=== PATIENT | female | born 1985 | race Caucasian/White ===

== ENCOUNTER 2017-04-24 12:41 | Emergency (ER) | payer OTHER ==
[~2017-04-24] VITALS: Ht 157.5 cm; Wt 86.2 kg
[~2017-04-24 12:41] MED LIST: BECL0.089 INH
[2017-04-24 12:50] VITALS: BP 119/64
--- NOTE | 2017-04-24 12:53 | NUR ---
PATIENT AMBULATED TO BED 12 AT THIS TIME.
--- NOTE | 2017-04-24 12:55 | NUR ---
31/F BIB SELF C/O SOB SINCE WEDNESDAY; USING HER INHALER WITH NO IMPROVEMENT. HX OF ASTHMA. DENIES N/V/D; SKIN IS PINK/WARM/DRY; AAOX4 WITH EVEN AND STEADY GAIT; LUNGS WHEEZING BL; PATIENT STATES PAIN OF 5/10 AT THIS TIME; VSS; PATIENT POSITIONED FOR COMFORT; HOB ELEVATED; BEDRAILS UP X2; BED DOWN. ER MD MADE AWARE OF PT STATUS.
[2017-04-24] MEDS ORDERED: ALBUTEROL SULFATE/IPRATROPIU 3 ML SOL IH ONE (13:10)
[2017-04-24] MEDS ORDERED: predniSONE 20 MG TAB PO ONE (13:10)
--- NOTE | 2017-04-24 13:25 | NUR ---
PATIENT OUT OF ROOM IN RADIOLOGY [employer] INSTALLER TO ATTEMPT HHN THERAPY AT A LATER TIME
--- NOTE | 2017-04-24 13:35 | NUR ---
ADMITTING DX: ADULT-ASTHMA C/O SOB AWAKE AND ALERT RESPONSIVE SKIN TONE PINK SITTING IN CHAIR EDUCATION PROVIDED TO PATIENT WITH ACKNOWLEDGEMENT ON HHN THERAPY AND RESPIRATORY DRUG HHN THERAPY GIVEN ORDERED ENCOURAGED PATIENT FOR DEEP BREATHING DURING THERAPY TOLERATED WELL WITHOUT INCIDENT
[2017-04-24 14:10] VITALS: BP 117/71
--- NOTE | 2017-04-24 14:10 | NUR ---
Patient discharged with v/s stable. Written and verbal after care instructions given and explained. Patient alert, oriented and verbalized understanding of instructions. Ambulatory with steady gait. All questions addressed prior to discharge. ID band removed. Patient advised to follow up with PMD. Rx of ALBUTEROL, PREDNISONE & QVAR given. Patient educated on indication of medication including possible reaction and side effects. Opportunity to ask questions provided and answered.
== END 2017-04-24 14:10 | disposition home or self-care (01) ==
LOC: MED 12:41
DX: J45.909 Unspecified asthma, uncomplicated (principal)
CPT/HCPCS: 71045; 94640; 99283; J7512; J7620

== ENCOUNTER 2017-05-22 15:32 | Emergency (ER) | payer OTHER ==
[~2017-05-22] VITALS: Ht 154.9 cm; Wt 60.8 kg
[2017-05-22 15:37] VITALS: BP 119/55
--- NOTE | 2017-05-22 15:40 | NUR ---
PT AMBULATED TO CHAIR E.
--- NOTE | 2017-05-22 15:49 | NUR ---
Dr. Roberts evaluating patient.
--- NOTE | 2017-05-22 15:50 | NUR ---
31f bib self with c/o moderate sob x 4 days, progressively getting worse. Pt able to speak in full sentences. Pt also reports of productive cough with green phelgm and nasal congestion. Pt reports of 10/10 "sharp" non radiating bl lower back pain. Pt denies any recent falls or injury. Pt is aox4 with steady gait. Skin warm/pink/dry. RR are even and tachypenic. No acute resp distress noted. Er md sechrist by bedside examining pt. Will continue to monitor.
[2017-05-22] MEDS: ALBUTEROL 0.083% 2.5 MG/3 ML NEBU INH ONE (15:59)
[2017-05-22] MEDS: IPRATROPIUM 0.02% 0.5 MG/2.5 ML NEBU INH ONE (15:59)
--- NOTE | 2017-05-22 16:00 | NUR ---
rt by bedside
[2017-05-22] MEDS: HYDROcodone/APAP 5/325 MG 1 TAB TAB PO ONE (16:03)
--- NOTE | 2017-05-22 16:13 | NUR ---
pt to xray via w/c accompanied by system technologist
[2017-05-22] MEDS: methylPREDNISolone SS 125 MG/2 ML VIAL IM ONE (16:35)
[2017-05-22] MEDS: ONDANSETRON 4 MG ODT PO ONE (16:55)
--- NOTE | 2017-05-22 16:57 | NUR ---
PATIENT REQUESTING FOR PAIN MEDICATION; PACING BACK AND FORTH; ER MD SECHRIST MADE AWARE.
[2017-05-22] MEDS: KETOROLAC 60 MG/2 ML VIAL IM ONE (18:09)
--- NOTE | 2017-05-22 19:09 | NUR ---
Patient discharged with v/s stable. Written and verbal after care instructions given and explained. Patient alert, oriented and verbalized understanding of instructions. Ambulatory with steady gait. All questions addressed prior to discharge. ID band removed. Patient advised to follow up with PMD. Rx of Albuteral and Prednisone given. Patient educated on indication of medication including possible reaction and side effects. Opportunity to ask questions provided and answered.
[2017-05-22 19:10] VITALS: BP 112/75
== END 2017-05-22 19:09 | disposition home or self-care (01) ==
LOC: MED 15:32
DX: J45.901 Unspecified asthma with (acute) exacerbation (principal); R11.2 Nausea with vomiting, unspecified; Z79.899 Other long term (current) drug therapy
CPT/HCPCS: 71045; 81025; 94640; 96372; 99284; J1885; J2930; J7613; J7644; S0119

== ENCOUNTER 2018-04-26 07:55 | Emergency (ER) | payer OTHER ==
[~2018-04-26] VITALS: Ht 165.1 cm; Wt 85.7 kg
[2018-04-26 08:00] VITALS: BP 107/70
--- NOTE | 2018-04-26 08:06 | NUR ---
PT AMBULATES TO BED 1
--- NOTE | 2018-04-26 08:26 | NUR ---
Patient being evaluated by physician at bedside.
--- NOTE | 2018-04-26 08:29 | NUR ---
32 yo f bib self w/ c/o cold symptoms x 3 days. cough, congestion, sore throat. rr even and unlabored. lungs clear. deneis n/v/d. SKIN IS PINK/WARM/DRY; AAOX4 WITH EVEN AND STEADY GAIT; LUNGS CLEAR BL; HR EVEN AND REGULAR; PT DENIES ANY FEVER, CP, SOB, OR COUGH AT THIS TIME; PATIENT STATES PAIN OF 8/10 AT THIS TIME; VSS; PATIENT POSITIONED FOR COMFORT; HOB ELEVATED; BEDRAILS UP X2; BED DOWN. ER MD MADE AWARE OF PT STATUS.
[2018-04-26 08:51] VITALS: BP 107/70
--- NOTE | 2018-04-26 08:52 | NUR ---
Patient discharged with v/s stable. Written and verbal after care instructions given and explained. Patient verbalized understanding. Ambulatory with steady gait. All questions addressed prior to discharge. Advised to follow up with PMD.
== END 2018-04-26 08:52 | disposition home or self-care (01) ==
LOC: MED 07:55
DX: B34.9 Viral infection, unspecified (principal); R51 Headache; J45.909 Unspecified asthma, uncomplicated; Z90.49 Acquired absence of other specified parts of digestive tract; Z79.899 Other long term (current) drug therapy
CPT/HCPCS: 99281

== ENCOUNTER 2018-06-14 13:58 | Emergency (ER) | payer OTHER ==
[~2018-06-14] VITALS: Ht 157.5 cm; Wt 83.2 kg
[2018-06-14 14:20] VITALS: BP 114/57
--- NOTE | 2018-06-14 14:50 | NUR ---
CAME IN WITH C/O LOWER ABD PAIN X 2 DAYS. REPORTS NAUSEA, DENIES V/D. ABD SOFT, NONTENDER,NORMOACTIVE X4. DENIES HEMATURIA. PMH: ASTHMA, TOOK PEPTOM BISMO YESTERDAY WITHOUT RELIEF
--- NOTE | 2018-06-14 14:50 | NUR ---
PT AMBULATED TO ER BED
[2018-06-14] MEDS ORDERED: ONDANSETRON 4 MG ODT PO ONE (15:40)
[2018-06-14] MEDS ORDERED: DIPHENOXYLATE /ATROPINE 2.5 MG TAB PO ONE (15:40)
[2018-06-14 16:09] VITALS: BP 103/64
--- NOTE | 2018-06-14 16:09 | NUR ---
Patient discharged with v/s stable. Written and verbal after care instructions given and explained. Patient alert, oriented and verbalized understanding of instructions. Ambulatory with steady gait. All questions addressed prior to discharge. ID band removed. Patient advised to follow up with PMD. Rx of LOMOTIL AND ZOFRAN ODT given. Patient educated on indication of medication including possible reaction and side effects. Opportunity to ask questions provided and answered.
== END 2018-06-14 16:09 | disposition home or self-care (01) ==
LOC: MED 13:58
DX: R19.7 Diarrhea, unspecified (principal); R10.13 Epigastric pain; R42 Dizziness and giddiness; R51 Headache; R53.1 Weakness; R11.0 Nausea; J45.909 Unspecified asthma, uncomplicated; Z90.49 Acquired absence of other specified parts of digestive tract; Z79.899 Other long term (current) drug therapy
CPT/HCPCS: 81002; 81025; 99283; Q0162

== ENCOUNTER 2019-05-04 18:36 | Emergency (ER) | payer OTHER ==
[~2019-05-04] VITALS: Ht 154.9 cm; Wt 84.8 kg
[2019-05-04 18:46] VITALS: BP 116/73
--- NOTE | 2019-05-04 18:49 | NUR ---
PT AMBULATED TO ER BED 08
[2019-05-04] MEDS ORDERED: ALBUTEROL SULFATE/IPRATROPIU 3 ML SOL IH ONE ×2 (18:55→19:35)
[2019-05-04] MEDS ORDERED: ALBUTEROL 0.083% 2.5 MG/3 ML NEBU INH ONE (18:55)
[2019-05-04] MEDS ORDERED: predniSONE 20 MG TAB PO ONE (18:55)
--- NOTE | 2019-05-04 19:15 | NUR ---
PATIENT STATES SHE HAS BEEN HAVING SOB ON AND OFF FOR TWO WEEKS, WORSE TODAY. HAS BEEN USING RESCUE INHALER AT HOME WITH MINIMAL RELIEF. PATIENT STATES SHE HAS HAD FLU LIKE SYMPTOMS FOR THE PAST WEEK INCLUDING COUGH, AND CHILLS. ABD SOFT AND NON-TENDER. PATIENT BREATHING EVEN AND REGULAR, NO LABORED BREATHING AT THIS TIME. PATIENT 99% SPO2 ON RA ON MONITOR. INSPIRITORY WHEEZING HEARD IN BILATERAL UPPER AND LOWER LOBES. AAO, SKIN WARM AND DRY. NO OTHER SYMPTOMS REPORTED. HX: ASTHMA.
[2019-05-04] MEDS ORDERED: methylPREDNISolone SS 125 MG/2 ML VIAL IM ONE (19:25)
--- NOTE | 2019-05-04 20:00 | NUR ---
patient states she feels much better after second breathing treatment.
[2019-05-04 20:18] VITALS: BP 116/73
== END 2019-05-04 20:18 | disposition home or self-care (01) ==
LOC: MED 18:36
DX: J45.909 Unspecified asthma, uncomplicated (principal); Z79.899 Other long term (current) drug therapy; Z98.890 Other specified postprocedural states
CPT/HCPCS: 94640; 96372; 99284; J2930; J7512; J7613; J7620

== ENCOUNTER 2020-02-25 10:44 | Emergency (ER) | payer MEDICAID, OTHER ==
[~2020-02-25] VITALS: Ht 154.9 cm; Wt 88.0 kg
[2020-02-25 11:09] VITALS: BP 119/63
--- NOTE | 2020-02-25 11:10 | NUR ---
C/O ASTHMA EXACERBATION X2 DAYS, WORSENING SINCE LAST NIGHT. 02 SAT RA 100%, AUDIBLE WHEEZING HEARD ON INSPIRATION. HOME MEDS ARE SPIRIVA AND SEREVENT.
--- NOTE | 2020-02-25 11:19 | NUR ---
PATIENT AMBULATED WITH STEADY GAIT TO BED 2.
[2020-02-25] MEDS ORDERED: ALBUTEROL SULFATE/IPRATROPIU 3 ML SOL IH ONE (11:20)
[2020-02-25] MEDS ORDERED: methylPREDNISolone SS 125 MG in WATER STERILE 2 ML IM ONE (11:20)
[2020-02-25] MEDS ORDERED: WATER STERILE 10 ML MC ONE (11:23)
[2020-02-25] MEDS ORDERED: methylPREDNISolone SS 125 MG/2 ML VIAL ONE (11:23)
--- NOTE | 2020-02-25 11:29 | NUR ---
HHN THERPY AND RESPIRATORY DRUG GIVEM OREDERED PEAK FLOW before 330ml after 380ml
[2020-02-25 12:09] VITALS: BP 119/63
--- NOTE | 2020-02-25 12:09 | NUR ---
Patient discharged with v/s stable. Written and verbal after care instructions given and explained. Patient alert, oriented and verbalized understanding of instructions. Ambulatory with steady gait. All questions addressed prior to discharge. ID band removed. Patient advised to follow up with PMD. Rx of PREDNISONE AND ZITHROMAX given. Patient educated on indication of medication including possible reaction and side effects. Opportunity to ask questions provided and answered.
== END 2020-02-25 12:09 | disposition home or self-care (01) ==
LOC: MED 10:44
DX: J45.901 Unspecified asthma with (acute) exacerbation (principal); Z98.890 Other specified postprocedural states; Z79.899 Other long term (current) drug therapy
CPT/HCPCS: 94640; 96372; 99283; J2930

== ENCOUNTER 2021-07-11 20:16 | Emergency (ER) | payer MEDICAID ==
[~2021-07-11] VITALS: Ht 157.5 cm; Wt 86.6 kg
[2021-07-11 20:37] VITALS: BP 111/70
--- NOTE | 2021-07-11 20:45 | NUR ---
PT TAKEN TO ER BED 04
--- NOTE | 2021-07-11 21:00 | NUR ---
ER MD AT BEDSIDE EXAMINING PT
--- NOTE | 2021-07-11 21:02 | NUR ---
35 Y/O FEMALE BIBS, C/O SOB AND DIFF BREATHING X3 WKS. PATIENT PRESENTS TO ED WITH NON PRODUCTIVE COUGH AND WHEEZES. PT STATES FOR THE PAST 3 WKS SHE HAS BEEN FATIGUED, HEADACHE, COUGH WITH DIFFICULTY BREATHING AND SOB. DENIES N/V/D; SKIN IS PINK/WARM/DRY; AAOX4 WITH EVEN AND STEADY GAIT; HR EVEN AND REGULAR; PT DENIES ANY FEVER OR CP AT THIS TIME; PATIENT STATES PAIN OF 0/10 AT THIS TIME; VSS; PATIENT POSITIONED FOR COMFORT; HOB ELEVATED; BEDRAILS UP X2; BED DOWN. ER MD MADE AWARE OF PT STATUS.
[2021-07-11] MEDS ORDERED: ALBUTEROL SULFATE/IPRATROPIU 3 ML SOL IH ONE (21:20)
[2021-07-11] MEDS ORDERED: NACL 0.9% 1,000 ML IV ONE (21:20)
[2021-07-11] MEDS ORDERED: methylPREDNISolone SS 125 MG/2 ML VIAL IVP ONE (21:20)
[2021-07-11] MEDS ORDERED: MAG SULF 2000 MG/WATER PREMIX 50 ML IV ONE (21:20)
--- NOTE | 2021-07-11 21:25 | NUR ---
RT AT BEDSIDE ADMINISTERING BREATHING TREATMENT
[2021-07-11] MEDS ORDERED: PRED20TA5 PO (22:16)
[2021-07-12 00:03] VITALS: BP 111/70
--- NOTE | 2021-07-12 00:04 | NUR ---
Patient discharged with v/s stable. Written and verbal after care instructions given and explained. Patient alert, oriented and verbalized understanding of instructions. Ambulatory with steady gait. All questions addressed prior to discharge. ID band removed. Patient advised to follow up with PMD. Rx of PREDNISONE given. Patient educated on indication of medication including possible reaction and side effects. Opportunity to ask questions provided and answered. VSS, A/OX4, AMBULATORY, UNLABORED BREATHING, AND CALM DEMEANOR.
== END 2021-07-12 00:03 | disposition home or self-care (01) ==
LOC: MED 20:16
DX: J45.901 Unspecified asthma with (acute) exacerbation (principal); Z79.899 Other long term (current) drug therapy
CPT/HCPCS: 94640; 96365; 96366; 96375; 99285; J2930; J3475

== ENCOUNTER 2021-09-12 21:59 | Emergency (ER) | payer MEDICAID ==
[~2021-09-12] VITALS: Ht 157.5 cm; Wt 89.8 kg
[~2021-09-12 21:59] MED LIST changes: +PRED20TA5 PO
[2021-09-12 22:05] VITALS: BP 134/67
--- NOTE | 2021-09-12 22:07 | NUR ---
PT IN BED 12. RT PAGED.
--- NOTE | 2021-09-12 22:10 | NUR ---
RT AT BEDSIDE
--- NOTE | 2021-09-12 22:17 | NUR ---
36 Y/O GFEMALE BIBS FROM HOME, C/O DIFFICULTY BREATHING SINCE JUNE. 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 PT STATES SHE HAS PERIODIC EXACERBATIONS WHERE IT IS DIFFICULT WITH INHALATION AND EXPIRATION. AUDIBLE WHEEZES AND ACCESSORY MUSCLE USE. PT IS TACHYPNIC AND DIZZY. NO CYANOSIS OR NUMBNESS TO EXTREMETIES. A/OX4, SPEAKING IN FULL SENTENCES. AMBULATORY W/O ASSISTANCE. HX: ASTHMA NKA MED:ALBUTEROL, SUPREVA, WEXLLIA
[2021-09-12] MEDS ORDERED: methylPREDNISolone SS 125 MG/2 ML VIAL IVP ONE (22:20)
[2021-09-12] MEDS ORDERED: ALBUTEROL SULFATE/IPRATROPIU 3 ML SOL IH ONE ×2 (22:20→23:20)
[2021-09-12] MEDS ORDERED: MAG SULF 2000 MG/WATER PREMIX 50 ML IV ONE (22:20)
[2021-09-12] MEDS ORDERED: NACL 0.9% 1,000 ML IV ONE (22:20)
--- NOTE | 2021-09-12 22:50 | NUR ---
ER MD AT BEDSIDE EXAMINING PT
--- NOTE | 2021-09-12 22:53 | NUR ---
COVID/SEBASTIÁN AND FLU SWABS COLLECTED AND WALKED TO LAB
[2021-09-12] MEDS ORDERED: PRON INH (23:22)
[2021-09-12] MEDS ORDERED: PRED20TA6 PO (23:22)
[2021-09-12] MEDS ORDERED: ALBU0.0912 IH (23:22)
[2021-09-12] MEDS ORDERED: TAM75 PO (23:39)
[2021-09-12] MEDS ORDERED: OSELTAMIVIR PHOSPHATE 75 MG CAP PO ONE (23:40)
[2021-09-13 00:31] VITALS: BP 130/70
--- NOTE | 2021-09-13 00:32 | NUR ---
Patient discharged with v/s stable. Written and verbal after care instructions given and explained. Patient alert, oriented and verbalized understanding of instructions. Ambulatory with steady gait. All questions addressed prior to discharge. ID band removed. Patient advised to follow up with PMD. Rx of PROVENTIL HFA MDI, PREDNISONE, TAMIFLU, PROVENTIL 0.083% NEB given. Patient educated on indication of medication including possible reaction and side effects. Opportunity to ask questions provided and answered. VSS, A/OX4, UNLABORED BREATHING, AND CALM DEMEANOR.
== END 2021-09-13 00:28 | disposition home or self-care (01) ==
LOC: MED 21:59
DX: J45.901 Unspecified asthma with (acute) exacerbation (principal); Z20.822 Contact with and (suspected) exposure to COVID-19; J10.1 Influenza due to other identified influenza virus with other respiratory manifestations; Z90.49 Acquired absence of other specified parts of digestive tract; Z98.890 Other specified postprocedural states
CPT/HCPCS: 87426; 87804; 94640; 94760; 96365; 96366; 96375; 99284; J2930; J3475; J7030; 96361

== ENCOUNTER 2021-10-19 19:51 | Emergency (ER) | payer MEDICAID ==
[~2021-10-19] VITALS: Ht 157.5 cm; Wt 86.6 kg
[~2021-10-19 19:51] MED LIST changes: +ALBU0.0912 IH; +PRED20TA6 PO; +PRON INH; +TAM75 PO
[2021-10-19 19:55] VITALS: BP 115/76
--- NOTE | 2021-10-19 19:57 | NUR ---
Patient ambulated to bed 2 with her son (Minor)
--- NOTE | 2021-10-19 20:05 | NUR ---
Dr. Bishop interviewing patient.
[2021-10-19] MEDS ORDERED: methylPREDNISolone SS 125 MG/2 ML VIAL IVP ONE (20:10)
[2021-10-19] MEDS ORDERED: ALBUTEROL SULFATE/IPRATROPIU 3 ML SOL IH ONE (20:10)
[2021-10-19] MEDS ORDERED: predniSONE 20 MG TAB PO ONE (20:15)
[2021-10-19] MEDS ORDERED: ALBU0.0912 INH (21:05)
[2021-10-19] MEDS ORDERED: PRED20TA5 PO (21:05)
[2021-10-19 21:14] VITALS: BP 128/78
== END 2021-10-19 21:15 | disposition home or self-care (01) ==
LOC: MED 19:51
DX: J45.901 Unspecified asthma with (acute) exacerbation (principal)
CPT/HCPCS: 94640; 99283; J7512

== ENCOUNTER 2022-02-27 23:14 | Emergency (ER) | payer MEDICAID ==
[~2022-02-27] VITALS: Ht 157.5 cm; Wt 86.2 kg
[~2022-02-27 23:14] MED LIST changes: +ALBU0.0912 INH
[2022-02-27 23:16] VITALS: BP 110/73
--- NOTE | 2022-02-27 23:22 | NUR ---
PT TO BED 7.
--- NOTE | 2022-02-27 23:25 | NUR ---
36 YO F BIB SELF WITH C/C OF ASTHMA EXACERBATION X2DAYS. +WHEEZING +COUGH +CONGESTION. PT REPORTS PAIN WITH COUGH. STATES SHE HAS BEEN USING HER RESCUE INHALER WELL AT HOME BREATHING TREATMENT WITH NO RELIEF. HX:ASTHMA RX:ALBUTEROL NKA
--- NOTE | 2022-02-27 23:25 | NUR ---
RT PAGED. STATES HE WILL BE HERE WHEN ORDER COMES THROUGH.
--- NOTE | 2022-02-27 23:28 | NUR ---
Oj rogers in [facility] - 02/27/22 at 2328 by SRIDHAR PT TAKEN TO BED 7
[2022-02-27] MEDS ORDERED: methylPREDNISolone SS 125 MG/2 ML VIAL IM ONE (23:30)
[2022-02-27] MEDS ORDERED: ALBUTEROL SULFATE/IPRATROPIU 3 ML SOL IH ONE ×2 (23:30→23:55)
--- NOTE | 2022-02-27 23:32 | NUR ---
RT AT BEDSIDE
--- NOTE | 2022-02-27 23:39 | NUR ---
Dr. Love examining patient.
[2022-02-28] MEDS ORDERED: PRED20TA5 PO (00:32)
[2022-02-28 00:41] VITALS: BP 101/45
--- NOTE | 2022-02-28 00:41 | NUR ---
Patient discharged with v/s stable. Written and verbal after care instructions given and explained. Patient alert, oriented and verbalized understanding of instructions. Ambulatory with steady gait. All questions addressed prior to discharge. ID band removed. Patient advised to follow up with PMD. Rx of PREDNISONE given.
== END 2022-02-28 00:41 | disposition home or self-care (01) ==
LOC: MED 23:14
DX: J45.901 Unspecified asthma with (acute) exacerbation (principal); J06.9 Acute upper respiratory infection, unspecified; Z79.899 Other long term (current) drug therapy
CPT/HCPCS: 94640; 96372; 99285; J2930

== ENCOUNTER 2022-09-13 17:42 | Emergency (ER) | payer MEDICAID ==
[~2022-09-13] VITALS: Ht 154.9 cm; Wt 88.9 kg
[2022-09-13 18:30] VITALS: BP 115/60; PULSE 84; RESP 18; TEMP 97.2; O2SAT 99
[2022-09-13] MEDS ORDERED: predniSONE 20 MG TAB PO ONE (18:45)
[2022-09-13] MEDS ORDERED: ALBUTEROL 0.083% 2.5 MG/3 ML NEBU INH ONE (18:45)
[2022-09-13] MEDS ORDERED: ALBUTEROL SULFATE/IPRATROPIU 3 ML SOL IH ONE (18:45)
[2022-09-13 19:04] VITALS: PULSE 77; RESP 14; O2SAT 100
--- NOTE | 2022-09-13 19:14 | NUR ---
BREATHING TX GIVEN. MEDICATED PT ORDERED.
[2022-09-13] MEDS ORDERED: PRED20TA5 PO (19:37)
--- NOTE | 2022-09-13 19:38 | NUR ---
Breathing tx effective, per pt. No signs of respiratory distress.
[2022-09-13 19:43] VITALS: BP 114/63; PULSE 82; RESP 16; TEMP 97.8; O2SAT 95
--- NOTE | 2022-09-13 19:43 | NUR ---
Patient discharged with v/s stable. Written and verbal after care instructions given and explained. Patient alert, oriented and verbalized understanding of instructions. Ambulatory with steady gait. All questions addressed prior to discharge. ID band removed. Patient advised to follow up with PMD. Rx of Prednisone sent to preferred pharmacy. Patient educated on indication of medication including possible reaction and side effects. Opportunity to ask questions provided and answered.
== END 2022-09-13 19:43 | disposition home or self-care (01) ==
LOC: MED 17:42
DX: J45.901 Unspecified asthma with (acute) exacerbation (principal); Z90.49 Acquired absence of other specified parts of digestive tract; Z98.890 Other specified postprocedural states; Z79.899 Other long term (current) drug therapy
CPT/HCPCS: 94640; 99285; J7512; J7613

== ENCOUNTER 2023-08-13 19:10 | Emergency (ER) | payer MEDICAID ==
[~2023-08-13] VITALS: Ht 154.9 cm; Wt 83.5 kg
[2023-08-13 19:51] VITALS: BP 115/68; PULSE 63; RESP 18; TEMP 98.1; O2SAT 99
== END 2023-08-13 22:31 | disposition left against medical advice (07) ==
LOC: MED 19:10
DX: M25.561 Pain in right knee (principal); Z53.21 Procedure and treatment not carried out due to patient leaving prior to being seen by health care provider
CPT/HCPCS: 81025